=== PATIENT | male | born 1940 | race Caucasian/White ===

== ENCOUNTER 2017-02-09 09:50 | Emergency (ER) | payer MEDICARE, OTHER ==
[2017-02-09] MEDS ORDERED: ONDANSETRON 4 MG/2 ML VIAL IVP STA (10:16)
[2017-02-09] MEDS ORDERED: SODIUM CHLORIDE 0.9% 1,000 ML IV ONE ×3 (10:16→12:59)
--- NOTE | 2017-02-09 10:18 | ED Physician Documentation ---
PD HPI NVD - Stated complaint Stated Complaint: DIARRHEA/VOMITING - Chief complaint Chief Complaint: Abd Pain - History obtained from History obtained from: Patient, Family - History of Present Illness Timing - onset: Enter time (2099), How many days ago (2) Timing - duration: Days (2) Timing - details: Abrupt onset, Still present Associated symptoms: Dizzy, Near syncope / syncope, Loss of appetite. No: Abdominal pain, Chest pain, Hematemesis, Melena, Hematochezia Contributing factors: Other (started after eating and the rest of the family is not ill). No: Sick contact Improved by: Vomiting Similar symptoms before: Diagnosis (food poisoning) Recently seen: Not recently seen - Additonal information Additional information: 76-year-old male with a history of hypertension has developed some nausea and vomiting beginning 2 nights ago after eating. He has had diarrhea multiple times with brown liquid and he is vomiting brown liquid as well. He feels lightheaded and dizzy when he stands. He feels dehydrated. Review of Systems Constitutional: denies: Fever, Chills, Myalgias Eyes: denies: Decreased vision Ears: denies: Ear pain Nose: denies: Congestion Throat: denies: Sore throat Respiratory: denies: Cough GI: reports: Nausea, Vomiting, Diarrhea. denies: Abdominal Pain, Abdominal Swelling : denies: Dysuria, Frequency Skin: denies: Rash, Lesions Musculoskeletal: denies: Neck pain PD PAST MEDICAL HISTORY - Past Medical History Cardiovascular: Hypertension, High cholesterol, Coronary artery disease, [place] Respiratory: None Endocrine/Autoimmune: None GI: GERD : Benign prostate hypertrophy HEENT: None Psych: None Musculoskeletal: None Derm: None - Past Surgical History Past Surgical History: Yes General: Appendectomy, Colonoscopy - Present Medications Home Medications: Ambulatory Orders Medication Instructions Recorded Confirmed Aspirin [Aspir 81] 81 mg PO DAILY 01/30/15 02/09/17 Finasteride [Proscar] 5 mg PO DAILY 01/30/15 02/09/17 Lisinopril 20 mg PO DAILY 01/30/15 02/09/17 Simvastatin [Zocor] 40 mg PO DAILY 01/30/15 02/09/17 Terazosin HCl 10 mg PO DAILY 01/30/15 02/09/17 Fluticasone [Flonase] 1 sprays MONO DAILY 05/28/16 02/09/17 Multivitamin [Multivitamins] 1 each PO DAILY 05/28/16 02/09/17 Omeprazole 20 mg PO DAILY 05/28/16 02/09/17 Ondansetron Odt [Zofran] 4 mg TL Q6H PRN #10 tablet 02/09/17 - Allergies Allergies/Adverse Reactions: Allergies Allergy/AdvReac Type Severity Reaction Status Date / Time No Known Drug Allergies Allergy Verified 01/30/15 08:00 - Social History Does the pt smoke?: Yes Smoking Status: Light tobacco smoker Does the pt drink ETOH?: Yes Does the pt have substance abuse?: No - POLST Patient has POLST: No PD ED PE NORMAL - Vitals Vital signs reviewed: Yes (Hypertensive) - General General: No acute distress, Well developed/nourished - HEENT HEENT: Atraumatic, PERRL, EOMI - Neck Neck: Supple, no meningeal sign - Cardiac Cardiac: RRR, No murmur - Respiratory Respiratory: No respiratory distress, Clear bilaterally - Abdomen Abdomen: Soft, Non tender - Back Back: No CVA TTP, No spinal TTP - Derm Derm: Normal color, Warm and dry, No rash - Extremities Extremities: No deformity, No edema - Neuro Neuro: No motor deficit, No sensory deficit - Psych Psych: Normal mood, Normal affect Results - Vitals Vitals: Vital Signs - 24 hr 02/09/17 02/09/17 09:52 13:20 Temperature 35.9 C L 36.6 C Heart Rate 81 88 Respiratory 18 16 Rate Blood Pressure 140/79 H 132/75 H O2 Saturation 95 98 Oxygen O2 Source Room air - Labs Labs: Laboratory Tests 02/09/17 02/09/17 02/09/17 10:18 10:18 10:18 WBC 7.7 RBC 4.74 Hgb 15.3 Hct 44.3 MCV 93.4 MCH 32.4 H MCHC 34.6 RDW 12.5 Plt Count 138 MPV 8.6 Neut # 6.2 Lymph # 0.7 L [place] # 0.7 Eos # 0.1 Baso # 0.0 Absolute Nucleated RBC 0.00 Nucleated RBCs 0.0 Sodium 141 Potassium 3.4 L Chloride 100 L Carbon Dioxide 29 Anion Gap 12.0 BUN 17 Creatinine 1.1 Estimated GFR (MDRD) 65 L Glucose 131 H Calcium 9.3 Total Bilirubin 0.9 AST 27 ALT 26 Alkaline Phosphatase 61 Troponin I < 0.04 Total Protein 7.2 Albumin 4.2 Globulin 3.0 Albumin/Globulin Ratio 1.4 Lipase 11 L Procedures - IVC sono (time) 1010 Bedside IVC sono: IVC measures (cm) (0.89), IVC collapsed c insp (cm) (complete) , Dehydration PD MEDICAL DECISION MAKING - ED course Complexity details: reviewed results, re-evaluated patient, considered differential, d/w patient, d/w family ED course: 76 y/o male with acute diarrhea after eating last night is found to be dehydrated an is given IV saline and zofran with improvement. He is discharged into the care of his at the conclusion of treatment. Departure - Departure Disposition: 01 Home, Self Care Clinical Impression: Gastroenteritis, Dehydration Instructions: ED Dehydration, ED Food Poison Or Gastroenteritis Follow-Up: Latia Khan MD [Primary Care Provider] - Prescriptions: Ondansetron Odt [Zofran] 4 mg TL Q6H PRN #10 tablet PRN Reason: Nausea / Vomiting Discharge Date/Time: 02/09/17 13:20
[2017-02-09] MEDS ORDERED: ONDANSETRON 4 MG/2 ML VIAL ONE (10:25)
[2017-02-09 10:28] LABS: BASOPHILS % (AUTO) 0.4 %; EOSINOPHILS # (AUTO) 0.1 10^3/uL (0.0-0.7); EOSINOPHILS % (AUTO) 0.7 %; HCT - HEMATOCRIT 44.3 % (42.0-52.0); HGB - HEMOGLOBIN 15.3 g/dL (14.0-18.0); LYMPHOCYTES # (AUTO) 0.7 10^3/uL (1.5-3.5); LYMPHOCYTES % (AUTO) 9.3 %; MEAN CORPUSCULAR HEMOGLOBIN 32.4 pg (27.0-31.0); MEAN CORPUSCULAR HGB CONC 34.6 g/dL (32.0-36.0); MEAN CORPUSCULAR VOLUME 93.4 fL (80.0-94.0); MEAN PLATELET VOLUME 8.6 fL (7.4-11.4); MONOCYTES # (AUTO) 0.7 10^3/uL (0.0-1.0); MONOCYTES % (AUTO) 9.1 %; NEUTROPHILS # (AUTO) 6.2 10^3/uL (1.5-6.6); NEUTROPHILS % (AUTO) 80.5 %; RED BLOOD COUNT 4.74 10^6/uL (4.70-6.10); RED CELL DISTRIBUTION WIDTH 12.5 % (12.0-15.0); UNCORRECTED WHITE BLOOD COUNT 7.7 x10^3/uL; WHITE BLOOD COUNT 7.7 x10^3/uL (4.8-10.8)
[2017-02-09 10:42] LABS: ALBUMIN/GLOBULIN RATIO 1.4 (1.0-2.2); BILIRUBIN,TOTAL 0.9 mg/dL (0.2-1.0); CALCIUM 9.3 mg/dL (8.5-10.3); CREATININE 1.1 mg/dL (0.6-1.2); POTASSIUM 3.4 mmol/L (3.5-5.0); TOTAL PROTEIN 7.2 g/dL (6.7-8.2)
[2017-02-09] MEDS ORDERED: POTASSIUM BICARB 25 MEQ TABLET PO STA (11:47)
[2017-02-09] MEDS ORDERED: POTASSIUM BICARB 25 MEQ TABLET PO ONE (11:52)
[2017-02-09 13:22] VITALS: BP 132/75
== END 2017-02-09 13:20 | disposition home or self-care (01) ==
LOC: ED 09:50
DX: E86.0 Dehydration (principal); K52.9 Noninfective gastroenteritis and colitis, unspecified; I10 Essential (primary) hypertension; E78.00 Pure hypercholesterolemia, unspecified; I25.10 Atherosclerotic heart disease of native coronary artery without angina pectoris; I25.2 Old myocardial infarction; K21.9 Gastro-esophageal reflux disease without esophagitis; N40.0 Benign prostatic hyperplasia without lower urinary tract symptoms; Z79.82 Long term (current) use of aspirin; F17.200 Nicotine dependence, unspecified, uncomplicated
CPT/HCPCS: 36415; 80053; 83690; 84484; 85025; 96361; 96374; 99283; A9270

== ENCOUNTER 2018-09-29 10:40 | Outpatient (CLI) | payer MEDICARE, OTHER ==
--- NOTE | 2018-09-29 15:09 | XRAY Report ---
Reason: L HIP PAIN Procedure Date: 09/29/2018 Accession Number: [id number] / [id number] Procedure: XR - Hip w/Pelvis 2-3V LT CPT Code: FULL RESULT: EXAM: LEFT HIP RADIOGRAPHY EXAM DATE: 09/29/2018 10:46 AM. CLINICAL HISTORY: Left hip pain. COMPARISON: None. TECHNIQUE: 2 views. FINDINGS: Bones: No fracture is identified. Joints: Moderate bilateral narrowing of the femoral acetabular joints. Mild sclerosis is seen in the left greater than right SI joint. Soft Tissues: Normal. No soft tissue swelling. IMPRESSION: Degenerative hip disease, moderate and relatively symmetric. Mild sclerotic changes of the SI joints. RADIA
== END 2018-09-29 10:41 | disposition home or self-care (01) ==
LOC: DI 10:40
PROVIDERS: ATTEND Internal Medicine
DX: M16.12 Unilateral primary osteoarthritis, left hip (principal)

== ENCOUNTER 2018-11-03 10:44 | Outpatient (CLI) | payer MEDICARE, OTHER ==
--- NOTE | 2018-11-03 11:11 | XRAY Report ---
Reason: HEMOPTYSIS Procedure Date: 11/03/2018 Accession Number: [id number] / [id number] Procedure: XR - Chest 2 View X-Ray CPT Code: 05967 FULL RESULT: EXAM: CHEST RADIOGRAPHY EXAM DATE: 11/03/2018 10:56 AM. CLINICAL HISTORY: Hemoptysis. COMPARISON: None. TECHNIQUE: 2 views. FINDINGS: Lungs/Pleura: No focal opacities evident. No pleural effusion. No pneumothorax. Normal volumes. Mediastinum: Cardiomediastinal contour is borderline enlarged with subtle calcifications of the aortic arch. Other: The bones are qualitatively osteopenic; this limits evaluation for underlying fractures or masses. No single level thoracic compression fracture is detected, spine appears kyphotic. IMPRESSION: No acute airspace disease is detected. RADIA
== END 2018-11-03 10:45 | disposition home or self-care (01) ==
LOC: DI 10:44
PROVIDERS: ATTEND Internal Medicine
DX: R04.2 Hemoptysis (principal)
CPT/HCPCS: 71046

== ENCOUNTER 2018-11-27 07:28 | Outpatient (CLI) | payer MEDICARE, OTHER ==
[2018-11-27] MEDS ORDERED: IOVERSOL 320 100 ML VIAL IVP ONE ×2 (07:44→08:22)
--- NOTE | 2018-11-28 17:56 | CT Report ---
Reason: HEMOPTYSIS Procedure Date: 11/27/2018 Accession Number: [id number] / [id number] Procedure: CT - CHEST W CPT Code: FULL RESULT: EXAM: CT CHEST EXAM DATE: 11/27/2018 08:21 AM. CLINICAL HISTORY: Hemoptysis. COMPARISONS: None. TECHNIQUE: Routine helical CT imaging was performed through the chest. IV contrast: 80 mL Optiray 320. Reconstructions: Coronal and sagittal. In accordance with CT protocol optimization, one or more of the following dose reduction techniques were utilized for this exam: automated exposure control, adjustment of mA and/or KV based on patient size, or use of iterative reconstructive technique. FINDINGS: Lungs/Pleura: There is no consolidation or effusion. No suspicious noncalcified nodules are seen. There is no evidence of subpleural reticulation or architectural distortion. No central airway abnormalities. No pneumothorax. Mediastinum: Mild cardiomegaly. There are coronary artery calcifications. There are no enlarged axillary, supraclavicular, mediastinal, or hilar lymph nodes. Bones: Unremarkable. Visualized Abdomen: There is layering hyperdensity within the gallbladder which could represent stones. There is a small hiatal hernia. The visualized portions of the upper abdominal organs demonstrate no acute abnormalities. Other: None. IMPRESSION: 1. No acute or chronic pulmonary CT process. 2. There is mild cardiomegaly. There are coronary artery calcifications. 3. There may be cholelithiasis. Visualized portions of the upper abdominal organs demonstrate no acute abnormalities. RADIA
== END 2018-11-27 07:29 | disposition home or self-care (01) ==
LOC: DI 07:28
PROVIDERS: ATTEND Internal Medicine
DX: R04.2 Hemoptysis (principal); I51.7 Cardiomegaly; I25.10 Atherosclerotic heart disease of native coronary artery without angina pectoris
CPT/HCPCS: 36415; 71260; 82565; Q9967

== ENCOUNTER 2019-02-01 10:16 | Outpatient (CLI) | payer MEDICARE, OTHER ==
--- NOTE | 2019-02-01 19:26 | CARDIAC PROCEDURE NOTE ---
DATE OF SERVICE: 02/01/2019 Physician: Latia Khan MD EXERCISE CARDIOLITE PROTOCOL: Modified Nitin. TIME: 6 minutes 50 seconds. METs: 3.47. REASON FOR STOPPING TEST: Patient was tired. HEART RATE RESPONSE: 77 to maximum of 197 when the patient was in SVT. BLOOD PRESSURE RESPONSE: 160/90 to maximum 172/96. SYMPTOMS: No chest pain. The patient did have dyspnea. ST-SEGMENT RESPONSE: No significant ST-segment elevations or depressions. ARRHYTHMIAS: There were frequent PVCs. 1 minute 55 seconds into recovery, the patient went to SVT with a rate of 190, which was after Valsalva maneuver. He was asymptomatic during this time. IMPRESSION 1. No symptoms of chest pain. 2. No significant ST segment changes. CONCLUSIONS: Await imaging results. TD: 02/01/2019 18:26 MTDD
--- NOTE | 2019-02-03 14:16 | Nuclear Medicine Report ---
Reason: DYSPNEA ON EXERTION Procedure Date: 02/01/2019 Accession Number: [id number] / [id number] Procedure: NM - Myocardial Perfusion STR/RST CPT Code: FULL RESULT: EXAM: SINGLE-ISOTOPE EXERCISE STRESS TEST. SINGLE-ISOTOPE AND ONE-DAY REST/STRESS MYOCARDIAL PERFUSION SCANS WITH TOMOGRAPHIC IMAGING, QUANTITATIVE ANALYSIS, WALL MOTION ANALYSIS AND CALCULATION OF EJECTION FRACTION. EXAM DATE: 02/01/2019 03:26 PM. CLINICAL HISTORY: DYSPNEA ON EXERTION. COMPARISON: None. TECHNIQUE: A rest myocardial perfusion scan was done with tomography after the intravenous administration of 9.7 mCi Tc-99m sestamibi. After an appropriate delay, a treadmill exercise stress was performed according to department protocol. The patient exercised for 6 minutes and 50 seconds. The maximum heart rate was 197 bpm, which was 137% of the maximum predicted heart rate of 143 bpm. At approximately peak heart rate, 43.4 mCi of Tc-99m sestamibi was injected for stress myocardial perfusion scan. Motion correction was applied when appropriate. Gated tomographic images were obtained for wall motion analysis and computation of left ventricular ejection fraction. FINDINGS: Perfusion images: Left ventricular chamber size appears mildly enlarged at rest and unchanged at stress. There is a moderate size region of moderately to severely reduced uptake at the basal third of the inferior wall which appears fixed; diaphragmatic attenuation artifact likely contributes to this appearance. No convincing reversible perfusion deficits. SSS 2, SRS 0, SDS 2. Gated images: There is evidence of mild inferior wall hypokinesis. Calculated left ventricular EDV 194 mL, ESV 121 mL. The left ventricular ejection fraction is estimated at 38% (normal > 50%). IMPRESSION: 1. No convincing reversible perfusion deficits to indicate stress-induced ischemia. 2. Moderate size, moderate-severe fixed basal inferior wall perfusion deficit; diaphragmatic attenuation artifact contributes to this appearance. 3. Left ventricular ejection fraction of 38% (normal > 50%). Please correlate findings with stress ECG tracings and procedure notes. RADIA
== END 2019-02-01 10:17 | disposition home or self-care (01) ==
LOC: DI 10:16
PROVIDERS: ATTEND Internal Medicine
DX: R06.09 Other forms of dyspnea (principal)
CPT/HCPCS: 78452; 93017; A9500

== ENCOUNTER 2019-03-09 08:13 | Outpatient (CLI) | payer MEDICARE, OTHER ==
[2019-03-09 08:56] LABS: ALBUMIN/GLOBULIN RATIO 1.5 (1.0-2.2); BILIRUBIN,TOTAL 1.3 mg/dL (0.2-1.0); TOTAL PROTEIN 6.7 g/dL (6.7-8.2)
== END 2019-03-09 08:14 | disposition home or self-care (01) ==
LOC: LAB 08:13
PROVIDERS: ATTEND Physician Assistant
DX: I50.9 Heart failure, unspecified (principal); R06.09 Other forms of dyspnea
CPT/HCPCS: 36415; 80053

== ENCOUNTER 2019-03-24 08:18 | Outpatient (CLI) | payer MEDICARE, OTHER ==
[2019-03-24 09:01] LABS: CALCIUM 8.7 mg/dL (8.5-10.3)
[2019-03-24 10:55] LABS: FREE T4 (FREE THYROXINE) 0.8 ng/dL (0.58-1.64)
== END 2019-03-24 08:19 | disposition home or self-care (01) ==
LOC: LAB 08:18
PROVIDERS: ATTEND Physician Assistant
DX: E03.8 Other specified hypothyroidism (principal); I42.9 Cardiomyopathy, unspecified
CPT/HCPCS: 36415; 80048; 84439; 84443

== ENCOUNTER 2019-04-28 10:56 | Outpatient (CLI) | payer MEDICARE, OTHER ==
[2019-04-28 11:17] LABS: BASOPHILS # (AUTO) 0.1 10^3/uL (0.0-0.1); BASOPHILS % (AUTO) 1.1 %; EOSINOPHILS # (AUTO) 0.5 10^3/uL (0.0-0.7); EOSINOPHILS % (AUTO) 7.1 %; HGB - HEMOGLOBIN 13.3 g/dL (14.0-18.0); LYMPHOCYTES # (AUTO) 1.3 10^3/uL (1.5-3.5); LYMPHOCYTES % (AUTO) 19.6 %; MEAN CORPUSCULAR HEMOGLOBIN 32.8 pg (27.0-31.0); MEAN CORPUSCULAR VOLUME 93.8 fL (80.0-94.0); MEAN PLATELET VOLUME 10.2 fL (7.4-11.4); MONOCYTES # (AUTO) 0.6 10^3/uL (0.0-1.0); NEUTROPHILS # (AUTO) 4.1 10^3/uL (1.5-6.6); NEUTROPHILS % (AUTO) 62.9 %; PLT - PLATELET COUNT 149 10^3/uL (130-450); RED BLOOD COUNT 4.05 10^6/uL (4.70-6.10); RED CELL DISTRIBUTION WIDTH 11.9 % (12.0-15.0); WHITE BLOOD COUNT 6.5 x10^3/uL (4.8-10.8)
== END 2019-04-28 10:57 | disposition home or self-care (01) ==
LOC: LAB 10:56
PROVIDERS: ATTEND Orthopaedic Surgery
DX: Z01.812 Encounter for preprocedural laboratory examination (principal); M16.10 Unilateral primary osteoarthritis, unspecified hip
CPT/HCPCS: 36415; 80051; 85025

== ENCOUNTER 2022-01-30 08:00 | Outpatient (CLI) | payer MEDICARE, OTHER ==
[2022-01-30 16:14] LABS: BASOPHILS # (AUTO) 0.1 10^3/uL (0.0-0.1); BASOPHILS % (AUTO) 1.1 %; EOSINOPHILS # (AUTO) 0.4 10^3/uL (0.0-0.7); EOSINOPHILS % (AUTO) 6.9 %; HCT - HEMATOCRIT 40.6 % (42.0-52.0); HGB - HEMOGLOBIN 13.9 g/dL (14.0-18.0); LYMPHOCYTES # (AUTO) 1.1 10^3/uL (1.5-3.5); MEAN CORPUSCULAR HGB CONC 34.2 g/dL (32.0-36.0); MEAN CORPUSCULAR VOLUME 96.4 fL (80.0-94.0); MEAN PLATELET VOLUME 11.3 fL (7.4-11.4); MONOCYTES # (AUTO) 0.6 10^3/uL (0.0-1.0); MONOCYTES % (AUTO) 10.4 %; NEUTROPHILS # (AUTO) 3.3 10^3/uL (1.5-6.6); NEUTROPHILS % (AUTO) 60.4 %; PLT - PLATELET COUNT 134 10^3/uL (130-450); RED BLOOD COUNT 4.21 10^6/uL (4.70-6.10); WHITE BLOOD COUNT 5.4 x10^3/uL (4.8-10.8)
[2022-01-30 16:42] LABS: ALBUMIN 4.1 g/dL (3.2-5.5); ALBUMIN/GLOBULIN RATIO 1.5 (1.0-2.2); ALKALINE PHOSPHATASE 59 IU/L (42-121); ALT ALANINE AMINOTRANSFERASE 20 IU/L (10-60); AST ASPARTATE AMINOTRANSFERASE 21 IU/L (10-42); BILIRUBIN,TOTAL 1.2 mg/dL (0.2-1.0); BUN - BLOOD UREA NITROGEN 14 mg/dL (6-20); CALCIUM 8.9 mg/dL (8.5-10.3); CARBON DIOXIDE - CO2 29 mmol/L (21-32); CHLORIDE 104 mmol/L (101-111); CHOL/HDL RATIO 3.1 (<5.0); CHOLESTEROL 142 mg/dL; CK- CREATINE KINASE 104 IU/L (22-269); CREATININE 0.9 mg/dL (0.6-1.2); GFR - MDRD 81 (>89); GLUCOSE 97 mg/dL (70-100); HDL CHOLESTEROL 46 mg/dL; LDL CHOLESTEROL,CALCULATED 76 mg/dL; LDL/HDL RATIO 1.7 (<3.6); POTASSIUM 4.1 mmol/L (3.5-5.0); SODIUM 139 mmol/L (135-145); TOTAL PROTEIN 6.9 g/dL (6.7-8.2); TRIGLYCERIDES 98 mg/dL; VLDL CHOLESTEROL 20 mg/dL
[2022-01-30 16:44] LABS: THYROID STIMULATING HORMONE 0.41 uIU/mL (0.34-5.60)
[2022-01-30 16:46] LABS: FREE T4 (FREE THYROXINE) 0.89 ng/dL (0.58-1.64)
[2022-01-31 16:27] LABS: BILIRUBIN,URINE NEGATIVE (NEGATIVE); GLUCOSE, URINE (UA) NEGATIVE (NEGATIVE); KETONES,URINE (UA) NEGATIVE (NEGATIVE); LEUKOCYTE ESTERASE, URINE NEGATIVE (NEGATIVE); NITRITE,URINE NEGATIVE (NEGATIVE); OCCULT BLOOD,URINE NEGATIVE (NEGATIVE); PROTEIN,URINE NEGATIVE (NEGATIVE); UROBILINOGEN,URINE 0.2 (NORMAL) E.U./dL (NORMAL)
[2022-01-31 16:29] LABS: CLARITY,URINE CLEAR (CLEAR)
== END 2022-01-30 23:59 | disposition home or self-care (01) ==
LOC: LAB.R 08:00
PROVIDERS: ATTEND Internal Medicine
DX: Z00.00 Encounter for general adult medical examination without abnormal findings (principal); N40.0 Benign prostatic hyperplasia without lower urinary tract symptoms; C67.9 Malignant neoplasm of bladder, unspecified; I11.0 Hypertensive heart disease with heart failure; I50.9 Heart failure, unspecified; Z79.899 Other long term (current) drug therapy; I25.10 Atherosclerotic heart disease of native coronary artery without angina pectoris; K21.9 Gastro-esophageal reflux disease without esophagitis; Z86.010 Personal history of colon polyps; E02 Subclinical iodine-deficiency hypothyroidism
CPT/HCPCS: 80053; 80061; 81001; 81003; 82550; 83721; 84153; 84439; 84443; 85025; 87086

== ENCOUNTER 2022-06-03 17:10 | Outpatient (CLI) | payer MEDICARE, OTHER ==
--- NOTE | 2022-06-04 14:03 | MRI Report ---
PROCEDURE: CERVICAL SPINE WO INDICATIONS: PARESTHESIA OF SKIN TECHNIQUE: Noncontrast sagittal T1 spin echo and T2 fast spin echo, sagittal STIR, foraminal oblique sagittal T2 fast spin echo, and axial gradient echo or T2 fast spin echo through the cervical spine. COMPARISON: None. FINDINGS: Image quality: Excellent. Alignment and Curvature: There is normal bony alignment. Bone Marrow: Marrow demonstrates normal overall signal. Spinal Cord: Visualized spinal cord has normal size and signal. No cerebellar tonsillar herniation. Paraspinous Soft Tissues: No paravertebral masses. Prevertebral soft tissues are normal in thicknes s. C2-C3: No disc bulge. The foramina and central canal is patent. C3-C4: Diffuse disc bulge with a concentric annular tear. Uncovertebral hypertrophy causes severe b ilateral foraminal stenosis. The central canal is narrowed but patent. C4-C5: No disc bulge. Uncovertebral hypertrophy causes severe bilateral foraminal stenosis. The cent ral canal is patent. C5-C6: Endplate degenerative changes with disc space narrowing, disc osteophytes, and uncovertebral hypertrophy. There is severe bilateral foraminal stenosis and moderate central canal stenosis. C6-C7: Endplate degenerative changes with disc space narrowing, disc osteophytes, and uncovertebral hypertrophy. There is severe bilateral foraminal stenosis and moderate central canal stenosis. C7-T1: Grade 1 anterolisthesis. No disc bulge. The foramina and central canal are patent. IMPRESSION: 1. C5-6 and C6-7 have disc space narrowing, endplate degenerative changes, disc osteophytes and uncov ertebral hypertrophy resulting in severe bilateral foraminal stenosis and moderate central canal sten osis at both of these levels. 2. Uncovertebral hypertrophy at C3-4 and C4-5 cause severe bilateral foraminal stenosis with no centr al canal stenosis. Reviewed by: Justin Coyle on 06/04/2022 2:01 PM PST Approved by: Justin Coyle on 06/04/2022 2:01 PM PST Station ID: [id number]
== END 2022-06-03 17:11 | disposition home or self-care (01) ==
LOC: DI 17:10
PROVIDERS: ATTEND Internal Medicine
DX: M50.31 Other cervical disc degeneration, high cervical region (principal); M48.02 Spinal stenosis, cervical region; M47.812 Spondylosis without myelopathy or radiculopathy, cervical region

== ENCOUNTER 2023-02-04 10:45 | Outpatient (CLI) | payer MEDICARE, OTHER ==
[2023-02-04 11:01] LABS: BILIRUBIN,URINE NEGATIVE (NEGATIVE); GLUCOSE, URINE (UA) NEGATIVE (NEGATIVE); KETONES,URINE (UA) NEGATIVE (NEGATIVE); LEUKOCYTE ESTERASE, URINE NEGATIVE (NEGATIVE); NITRITE,URINE NEGATIVE (NEGATIVE); OCCULT BLOOD,URINE NEGATIVE (NEGATIVE); PH,URINE 6.5 PH (5.0-7.5); PROTEIN,URINE NEGATIVE (NEGATIVE); UROBILINOGEN,URINE 0.2 (NORMAL) E.U./dL (NORMAL)
[2023-02-04 11:02] LABS: BASOPHILS # (AUTO) 0.1 10^3/uL (0.0-0.1); BASOPHILS % (AUTO) 1.1 %; EOSINOPHILS # (AUTO) 0.4 10^3/uL (0.0-0.7); EOSINOPHILS % (AUTO) 6.2 %; HCT - HEMATOCRIT 39.5 % (42.0-52.0); HGB - HEMOGLOBIN 13.4 g/dL (14.0-18.0); LYMPHOCYTES # (AUTO) 1.2 10^3/uL (1.5-3.5); LYMPHOCYTES % (AUTO) 20.5 %; MEAN CORPUSCULAR HEMOGLOBIN 32.8 pg (27.0-31.0); MEAN CORPUSCULAR HGB CONC 33.9 g/dL (32.0-36.0); MEAN CORPUSCULAR VOLUME 96.8 fL (80.0-94.0); MEAN PLATELET VOLUME 10.5 fL (7.4-11.4); MONOCYTES # (AUTO) 0.5 10^3/uL (0.0-1.0); MONOCYTES % (AUTO) 9.4 %; NEUTROPHILS # (AUTO) 3.5 10^3/uL (1.5-6.6); NEUTROPHILS % (AUTO) 62.4 %; PLT - PLATELET COUNT 140 10^3/uL (130-450); RED BLOOD COUNT 4.08 10^6/uL (4.70-6.10); RED CELL DISTRIBUTION WIDTH 12.2 % (12.0-15.0); WHITE BLOOD COUNT 5.7 x10^3/uL (4.8-10.8)
[2023-02-04 11:16] LABS: BACTERIA,URINE None Seen /HPF (None Seen); CLARITY,URINE CLEAR (CLEAR); RBC,URINE 0-5 /HPF (0-5); SQUAMOUS EPITHELIAL CELL,UR NONE SEEN (<= Few); WBC,URINE 0-3 /HPF (0-3)
[2023-02-04 11:35] LABS: % IRON SATURATION 28 % (20-50); ALBUMIN/GLOBULIN RATIO 1.4 (1.0-2.2); ALKALINE PHOSPHATASE 69 IU/L (42-121); ALT ALANINE AMINOTRANSFERASE 22 IU/L (10-60); AST ASPARTATE AMINOTRANSFERASE 23 IU/L (10-42); BUN - BLOOD UREA NITROGEN 17 mg/dL (6-20); CALCIUM 8.9 mg/dL (8.5-10.3); CARBON DIOXIDE - CO2 28 mmol/L (21-32); CHLORIDE 107 mmol/L (101-111); CHOL/HDL RATIO 3.2 (<5.0); CHOLESTEROL 162 mg/dL; CREATININE 0.9 mg/dL (0.6-1.2); GFR - MDRD 81 (>89); GLUCOSE 108 mg/dL (70-100); HDL CHOLESTEROL 51 mg/dL; IRON 107 ug/dL (45-182); LDL CHOLESTEROL,CALCULATED 90 mg/dL; LDL/HDL RATIO 1.8 (<3.6); SODIUM 142 mmol/L (135-145); TOTAL IRON BINDING CAPACITY 379 ug/dL (250-450); TOTAL PROTEIN 6.9 g/dL (6.7-8.2); TRANSFERRIN 271 mg/dL (180-329); TRIGLYCERIDES 106 mg/dL; VLDL CHOLESTEROL 21 mg/dL
[2023-02-04 11:47] LABS: THYROID STIMULATING HORMONE 0.4 uIU/mL (0.34-5.60)
[2023-02-04 11:52] LABS: PSA TOTAL 0.756 ng/mL (0.000-2.000)
[2023-02-04 11:55] LABS: FERRITIN 132.5 ng/mL (23.9-336.2)
[2023-02-05 21:02] LABS: ESTIMATED AVERAGE GLUCOSE 100 mg/dL (70-100); HEMOGLOBIN A1c% 5.1 % (4.27-6.07)
[2023-02-06 09:42] LABS: FREE T4 (FREE THYROXINE) 0.98 ng/dL (0.58-1.64)
== END 2023-02-04 10:46 | disposition home or self-care (01) ==
LOC: LAB 10:45
PROVIDERS: ATTEND Internal Medicine
DX: Z00.00 Encounter for general adult medical examination without abnormal findings (principal); D64.9 Anemia, unspecified; N40.0 Benign prostatic hyperplasia without lower urinary tract symptoms; C67.9 Malignant neoplasm of bladder, unspecified; M54.12 Radiculopathy, cervical region; I50.9 Heart failure, unspecified; I25.10 Atherosclerotic heart disease of native coronary artery without angina pectoris; R06.09 Other forms of dyspnea; K21.9 Gastro-esophageal reflux disease without esophagitis; H91.90 Unspecified hearing loss, unspecified ear; Z86.010 Personal history of colon polyps; E78.5 Hyperlipidemia, unspecified; R15.9 Full incontinence of feces; E03.8 Other specified hypothyroidism; Z79.899 Other long term (current) drug therapy
CPT/HCPCS: 36415; 80053; 80061; 81001; 82607; 82728; 82746; 83036; 83540; 83721; 84153; 84439; 84443; 84466; 85025; 87086